=== PATIENT | male | born 1965 | race Caucasian/White ===

== ENCOUNTER 2017-12-01 20:20 | Inpatient (IN) | payer OTHER ==
[2017-12-01] MEDS ORDERED: BISACODYL (EC) 5 MG TAB PO (22:30)
[2017-12-01] MEDS ORDERED: ONDANSETRON 4 MG INJ IV (22:30)
[2017-12-01] MEDS ORDERED: NACL 0.9% 3 ML SYG IV (22:30)
[2017-12-01] MEDS ORDERED: ACETAMINOPHEN 325 MG TAB PO (22:30)
[2017-12-01] MEDS ORDERED: VANCOMYCIN IV PER PHARMACY XX (22:30)
[2017-12-01] MEDS ORDERED: DOCUSATE SODIUM 100 MG CAP PO (22:30)
[2017-12-01 23:13] LABS: ADD MAN DIFF? NO; HAAIG REFLEX REFLEX FILED
[2017-12-01 23:16] LABS: ABNORMAL IP MESSAGE 1; BASOPHIL # 0.1 10^3/ul (0.0-0.1); BASOPHILS % 1.5 % (0.0-2.0); EOSINOPHILS # 0.1 10^3/ul (0.0-0.5); EOSINOPHILS % 2.4 % (0.0-7.0); HEMATOCRIT 26.2 % (42.0-52.0); HEMOGLOBIN 8.6 g/dl (14.0-18.0); LYMPHOCYTES # 1.1 10^3/ul (0.8-2.9); LYMPHOCYTES % 24.2 % (15.0-51.0); MEAN CORPUSCULAR HEMOGLOBIN 29.6 pg (29.0-33.0); MEAN CORPUSCULAR HGB CONC 32.8 g/dl (32.0-37.0); MEAN PLATELET VOLUME 10.3 fl (7.4-10.4); MONOCYTE # 0.6 10^3/ul (0.3-0.9); MONOCYTES % 12.3 % (0.0-11.0); NEUTROPHIL # 2.7 10^3/ul (1.6-7.5); NEUTROPHILS % 59.4 % (39.0-77.0); PLATELET COUNT 83 10^3/UL (140-415); POSITIVE DIFF @See below; RED BLOOD COUNT 2.91 10^6/ul (4.70-6.10); RED CELL DISTRIBUTION WIDTH 16.5 % (11.5-14.5)
[2017-12-01 23:16] LABS: WHITE BLOOD COUNT 4.5 10^3/ul (4.8-10.8)
[2017-12-01 23:36] LABS: INR 1.25; PROTIME 15.9 Sec (11.9-14.9); PT RATIO 1.2
[2017-12-01 23:37] LABS: PARTIAL THROMBOPLASTIN TIME 35.4 Sec (25.0-35.0)
[2017-12-02 00:02] LABS: ALANINE AMINOTRANSFERASE 65 IU/L (13-69); ALBUMIN 3.5 g/dl (3.3-4.9); ALBUMIN/GLOBULIN RATIO 0.83; ALKALINE PHOSPHATASE 128 IU/L (42-121); ANION GAP 12 (8-16); ASPARTATE AMINO TRANSFERASE 143 IU/L (15-46); BLOOD UREA NITROGEN 6 mg/dl (7-20); CALCIUM 8.4 mg/dl (8.4-10.2); CARBON DIOXIDE 29 mmol/L (21-31); CHLORIDE 100 mmol/L (97-110); CREATININE 0.51 mg/dl (0.61-1.24); GLUCOSE 123 mg/dl (70-220); POTASSIUM 3.7 mmol/L (3.5-5.1); SODIUM 137 mmol/L (135-144); TOTAL PROTEIN 7.7 g/dl (6.1-8.1)
[2017-12-02 00:13] LABS: HEPATITIS B SURFACE ANTIGEN NEGATIVE (NEGATIVE)
[2017-12-02 00:33] LABS: HEPATITIS B SURFACE ANTIBODY NEGATIVE (NEGATIVE)
[2017-12-02 00:33] LABS: HEPATITIS B CORE ANTIBODY REACTIVE (NEGATIVE); HEPATITIS C VIRAL ANTIBODY REACTIVE (NEGATIVE)
[2017-12-02] MEDS: VANCOMYCIN 1.25 GM in SOD CHLORIDE 0.9% 250 ML IVPB (01:15)
[2017-12-02] MEDS: HYDROCODONE/APAP (5/325) TAB PO (03:53)
[2017-12-02] MEDS: CHLORDIAZEPOXIDE 25 MG CAP PO ×3 (05:41→20:49)
[2017-12-02] MEDS: LORAZEPAM 2 MG INJ IV (05:41)
[2017-12-02] MEDS: THIAMINE 200 MG INJ IM (06:00)
[2017-12-02 06:31] LABS: ADD MAN DIFF? NO
[2017-12-02 06:36] LABS: WHITE BLOOD COUNT 4.4 10^3/ul (4.8-10.8)
[2017-12-02 06:36] LABS: ABNORMAL IP MESSAGE 1; BASOPHIL # 0.1 10^3/ul (0.0-0.1); BASOPHILS % 1.6 % (0.0-2.0); EOSINOPHILS # 0.1 10^3/ul (0.0-0.5); EOSINOPHILS % 2.1 % (0.0-7.0); HEMATOCRIT 27.5 % (42.0-52.0); LYMPHOCYTES % 22.2 % (15.0-51.0); MEAN CORPUSCULAR HEMOGLOBIN 29.4 pg (29.0-33.0); MEAN CORPUSCULAR HGB CONC 32.7 g/dl (32.0-37.0); MEAN CORPUSCULAR VOLUME 89.9 fl (82.0-101.0); MEAN PLATELET VOLUME 11.2 fl (7.4-10.4); MONOCYTE # 0.6 10^3/ul (0.3-0.9); MONOCYTES % 14.2 % (0.0-11.0); NEUTROPHIL # 2.6 10^3/ul (1.6-7.5); NEUTROPHILS % 59.4 % (39.0-77.0); PLATELET COUNT 85 10^3/UL (140-415); POSITIVE DIFF @See below; RED BLOOD COUNT 3.06 10^6/ul (4.70-6.10); RED CELL DISTRIBUTION WIDTH 16.3 % (11.5-14.5)
[2017-12-02 06:49] LABS: HEMOGLOBIN A1C 5.1 % (0-5.9)
[2017-12-02 06:54] LABS: AMMONIA 58 umol/l (9-30)
[2017-12-02 07:08] LABS: ALANINE AMINOTRANSFERASE 66 IU/L (13-69); ALBUMIN 3.6 g/dl (3.3-4.9); ALBUMIN/GLOBULIN RATIO 0.85; ALKALINE PHOSPHATASE 112 IU/L (42-121); ANION GAP 9 (8-16); ASPARTATE AMINO TRANSFERASE 131 IU/L (15-46); BILIRUBIN,INDIRECT 1.5 mg/dl (0-1.1); BILIRUBIN,TOTAL 1.5 mg/dl (0.2-1.3); BLOOD UREA NITROGEN 7 mg/dl (7-20); CALCIUM 8.4 mg/dl (8.4-10.2); CARBON DIOXIDE 31 mmol/L (21-31); CHLORIDE 100 mmol/L (97-110); CREATININE 0.44 mg/dl (0.61-1.24); GLUCOSE 111 mg/dl (70-220); POTASSIUM 3.5 mmol/L (3.5-5.1); SODIUM 136 mmol/L (135-144); TOTAL PROTEIN 7.8 g/dl (6.1-8.1)
[2017-12-02 08:07] LABS: FOLATE 8.4 ng/ml (2.8-20.0)
[2017-12-02] MEDS ORDERED: MULTIVITAMINS 10 ML, THIAMINE 100 MG, FOLIC ACID 1 MG in SOD CHLORIDE 0.9% 1,000 ML IVPB (09:00)
[2017-12-02] MEDS: VANCOMYCIN 750 MG in SOD CHLORIDE 0.9% 150 ML IVPB (11:09)
[2017-12-02] MEDS ORDERED: METHADONE (1 MG/1 ML PO SYG) PO ×2 (14:00)
[2017-12-02] MEDS: METHADONE (1 MG/1 ML PO SYG) PO (14:10)
[2017-12-03] MEDS: THIAMINE 200 MG INJ IM (06:00)
[2017-12-03 07:53] LABS: HIV 1&2 ANTIBODY NEGATIVE (NEGATIVE)
[2017-12-03] MEDS: MULTIVITAMINS THERAPEUTIC TAB PO (08:30)
[2017-12-03] MEDS: CHLORDIAZEPOXIDE 25 MG CAP PO ×2 (08:30→12:42)
[2017-12-03] MEDS: FOLIC ACID 1 MG TAB PO (08:30)
[2017-12-03] MEDS: METHADONE (1 MG/1 ML PO SYG) PO (08:44)
[2017-12-03] MEDS ORDERED: FOLIC ACID 1 MG TAB PO (09:00)
[2017-12-04] MEDS ORDERED: CHLORDIAZEPOXIDE 25 MG CAP PO (09:00)
[2017-12-05 14:07] LABS: PROTEIN C 20 % normal (70-180)
[2017-12-08 15:17] LABS: HEPATITIS B DELTA ANTIBODY NEGATIVE
== END 2017-12-03 16:25 | disposition home or self-care (01) | DRG 556 ==
LOC: 5EC 20:20
DX: M79.605 Pain in left leg (principal); F10.230 Alcohol dependence with withdrawal, uncomplicated; F11.20 Opioid dependence, uncomplicated; M79.89 Other specified soft tissue disorders; Y90.1 Blood alcohol level of 20-39 mg/100 ml; F41.9 Anxiety disorder, unspecified; B19.20 Unspecified viral hepatitis C without hepatic coma; F17.200 Nicotine dependence, unspecified, uncomplicated; I10 Essential (primary) hypertension
CPT/HCPCS: 76705; 80053; 80307; 82140; 82607; 82746; 83036; 84443; 85025; 85300; 85302; 85305; 85610; 85613; 85730; 86692; 86703; 86704; 86706; 86708; 86709; 86803; 87340; 93970; 93971

== ENCOUNTER 2017-12-14 23:12 | Inpatient (IN) | payer OTHER ==
[2017-12-15] MEDS ORDERED: ACETAMINOPHEN 325 MG TAB PO
[2017-12-15] MEDS ORDERED: NACL 0.9% 3 ML SYG IV
[2017-12-15] MEDS ORDERED: VANCOMYCIN IV PER PHARMACY XX
[2017-12-15] MEDS ORDERED: morphine 2 MG INJ IV
[2017-12-15] MEDS ORDERED: BISACODYL (EC) 5 MG TAB PO
[2017-12-15] MEDS ORDERED: DOCUSATE SODIUM 100 MG CAP PO
[2017-12-15] MEDS ORDERED: ONDANSETRON 4 MG INJ IV
[2017-12-15 00:38] LABS: ADD MAN DIFF? NO
[2017-12-15 00:40] LABS: BASOPHIL # 0.1 10^3/ul (0.0-0.1); BASOPHILS % 2.4 % (0.0-2.0); EOSINOPHILS # 0.2 10^3/ul (0.0-0.5); EOSINOPHILS % 4.1 % (0.0-7.0); HEMATOCRIT 26.6 % (42.0-52.0); HEMOGLOBIN 8.4 g/dl (14.0-18.0); LYMPHOCYTES # 1.5 10^3/ul (0.8-2.9); LYMPHOCYTES % 31.9 % (15.0-51.0); MEAN CORPUSCULAR HEMOGLOBIN 29.4 pg (29.0-33.0); MEAN CORPUSCULAR HGB CONC 31.6 g/dl (32.0-37.0); MEAN PLATELET VOLUME 9.8 fl (7.4-10.4); MONOCYTE # 0.6 10^3/ul (0.3-0.9); MONOCYTES % 13.5 % (0.0-11.0); NEUTROPHIL # 2.2 10^3/ul (1.6-7.5); NEUTROPHILS % 47.7 % (39.0-77.0); PLATELET COUNT 263 10^3/UL (140-415); RED BLOOD COUNT 2.86 10^6/ul (4.70-6.10); RED CELL DISTRIBUTION WIDTH 16.4 % (11.5-14.5)
[2017-12-15 00:40] LABS: WHITE BLOOD COUNT 4.6 10^3/ul (4.8-10.8)
[2017-12-15 01:02] LABS: ALANINE AMINOTRANSFERASE 53 IU/L (13-69); ALBUMIN 2.8 g/dl (3.3-4.9); ALBUMIN/GLOBULIN RATIO 0.66; ALKALINE PHOSPHATASE 94 IU/L (42-121); ANION GAP 9 (8-16); ASPARTATE AMINO TRANSFERASE 89 IU/L (15-46); BILIRUBIN,INDIRECT 0.4 mg/dl (0-1.1); BILIRUBIN,TOTAL 0.4 mg/dl (0.2-1.3); BLOOD UREA NITROGEN 7 mg/dl (7-20); CALCIUM 8.1 mg/dl (8.4-10.2); CARBON DIOXIDE 29 mmol/L (21-31); CHLORIDE 107 mmol/L (97-110); CREATININE 0.49 mg/dl (0.61-1.24); GLUCOSE 90 mg/dl (70-220); POTASSIUM 3.6 mmol/L (3.5-5.1); SODIUM 141 mmol/L (135-144)
[2017-12-15] MEDS: VANCOMYCIN 1.5 GM in SOD CHLORIDE 0.9% 250 ML IVPB (02:29)
[2017-12-15] MEDS: LORAZEPAM 2 MG INJ IV (04:40)
[2017-12-15] MEDS ORDERED: CHLORDIAZEPOXIDE 25 MG CAP PO (05:00)
[2017-12-15] MEDS: CHLORDIAZEPOXIDE 25 MG CAP PO ×2 (05:41→12:00)
[2017-12-15] MEDS: HEPARIN 5,000 UNIT/0.5 ML VIAL SC ×3 (05:43→23:30)
[2017-12-15 07:42] LABS: ADD MAN DIFF? NO
[2017-12-15 07:48] LABS: WHITE BLOOD COUNT 4.4 10^3/ul (4.8-10.8)
[2017-12-15 07:48] LABS: BASOPHIL # 0.1 10^3/ul (0.0-0.1); BASOPHILS % 2.1 % (0.0-2.0); EOSINOPHILS # 0.2 10^3/ul (0.0-0.5); EOSINOPHILS % 4.1 % (0.0-7.0); HEMATOCRIT 28.7 % (42.0-52.0); HEMOGLOBIN 9.2 g/dl (14.0-18.0); LYMPHOCYTES # 1.2 10^3/ul (0.8-2.9); LYMPHOCYTES % 26.3 % (15.0-51.0); MEAN CORPUSCULAR HEMOGLOBIN 29.4 pg (29.0-33.0); MEAN CORPUSCULAR HGB CONC 32.1 g/dl (32.0-37.0); MEAN CORPUSCULAR VOLUME 91.7 fl (82.0-101.0); MEAN PLATELET VOLUME 9.7 fl (7.4-10.4); MONOCYTE # 0.6 10^3/ul (0.3-0.9); MONOCYTES % 14.2 % (0.0-11.0); NEUTROPHIL # 2.3 10^3/ul (1.6-7.5); NEUTROPHILS % 52.6 % (39.0-77.0); PLATELET COUNT 267 10^3/UL (140-415); RED BLOOD COUNT 3.13 10^6/ul (4.70-6.10); RED CELL DISTRIBUTION WIDTH 16.5 % (11.5-14.5)
[2017-12-15 08:08] LABS: IRON 33 ug/dl (35-150)
[2017-12-15 08:09] LABS: ETHANOL < 10.0 mg/dl; HEMOGLOBIN A1C 4.9 % (0-5.9)
[2017-12-15 08:12] LABS: ALANINE AMINOTRANSFERASE 58 IU/L (13-69); ALBUMIN 2.9 g/dl (3.3-4.9); ALBUMIN/GLOBULIN RATIO 0.65; ALKALINE PHOSPHATASE 101 IU/L (42-121); ANION GAP 8 (8-16); ASPARTATE AMINO TRANSFERASE 98 IU/L (15-46); BILIRUBIN,INDIRECT 0.6 mg/dl (0-1.1); BILIRUBIN,TOTAL 0.6 mg/dl (0.2-1.3); BLOOD UREA NITROGEN 8 mg/dl (7-20); CALCIUM 8.1 mg/dl (8.4-10.2); CARBON DIOXIDE 32 mmol/L (21-31); CHLORIDE 103 mmol/L (97-110); CHOL/HDL RATIO 1.6 RATIO; CHOLESTEROL 73 mg/dl (100-200); CREATININE 0.42 mg/dl (0.61-1.24); GLUCOSE 88 mg/dl (70-220); HDL CHOLESTEROL 43 mg/dl (28-71); LDL CHOLESTEROL,CALCULATED 22 mg/dl; MAGNESIUM 1.6 mg/dl (1.7-2.5); POTASSIUM 3.8 mmol/L (3.5-5.1); SODIUM 139 mmol/L (135-144); TOTAL PROTEIN 7.3 g/dl (6.1-8.1); TRIGLYCERIDES 41 mg/dl (0-149)
[2017-12-15 08:18] LABS: % IRON SATURATION 11 % SAT (22-52); TOTAL IRON BINDING CAPACITY 290 ug/dl (241-421)
[2017-12-15] MEDS: FOLIC ACID 1 MG TAB PO (08:42)
[2017-12-15] MEDS: MULTIVITAMINS THERAPEUTIC TAB PO (08:42)
[2017-12-15] MEDS: THIAMINE 200 MG INJ IM (08:42)
[2017-12-15 08:58] LABS: HEPATITIS C VIRAL ANTIBODY REACTIVE (NEGATIVE)
[2017-12-15 09:15] LABS: FOLATE 10.9 ng/ml (2.8-20.0)
[2017-12-15 11:30] LABS: FERRITIN 56.9 ng/ml (11.1-264.0)
[2017-12-15] MEDS: VANCOMYCIN 750 MG in SOD CHLORIDE 0.9% 150 ML IVPB ×2 (11:55→20:20)
[2017-12-15] MEDS ORDERED: LORAZEPAM 1 MG TAB PO (12:30)
[2017-12-15] MEDS ORDERED: VANCOMYCIN 1 GM 250 ML IVPB (13:00)
[2017-12-15 13:01] LABS: FREE T4 (FREE THYROXINE) 1.47 ng/dl (0.64-1.79)
[2017-12-15] MEDS: FERROUS SULFATE (EC) 325 MG TAB PO ×2 (13:13→20:25)
[2017-12-15] MEDS ORDERED: METHADONE (1 MG/1 ML PO SYG) PO (13:30)
[2017-12-15] MEDS: METHADONE (1 MG/1 ML PO SYG) PO (13:44)
[2017-12-15] MEDS: HYDROCODONE/APAP (5/325) TAB PO (14:40)
[2017-12-15] MEDS: LORAZEPAM 1 MG TAB PO (18:25)
[2017-12-15] MEDS ORDERED: LIDOCAINE 2%/EPI (MDV) 20ML INJ INJ (18:27)
[2017-12-15] MEDS: NICOTINE (21 MG/24 HR) PATCH TRANSDERM (20:23)
[2017-12-16 03:37] LABS: ADD MAN DIFF? NO
[2017-12-16] MEDS: LORAZEPAM 1 MG TAB PO (03:48)
[2017-12-16 03:56] LABS: ANION GAP 12 (8-16); BLOOD UREA NITROGEN 13 mg/dl (7-20); CALCIUM 8.5 mg/dl (8.4-10.2); CARBON DIOXIDE 30 mmol/L (21-31); CHLORIDE 104 mmol/L (97-110); CREATININE 0.55 mg/dl (0.61-1.24); GLUCOSE 107 mg/dl (70-220); MAGNESIUM 1.6 mg/dl (1.7-2.5); PHOSPHORUS 4.5 mg/dl (2.5-4.9); SODIUM 142 mmol/L (135-144)
[2017-12-16 04:00] LABS: BASOPHIL # 0.1 10^3/ul (0.0-0.1); BASOPHILS % 2.2 % (0.0-2.0); EOSINOPHILS # 0.2 10^3/ul (0.0-0.5); EOSINOPHILS % 4.8 % (0.0-7.0); HEMATOCRIT 30.3 % (42.0-52.0); HEMOGLOBIN 9.9 g/dl (14.0-18.0); LYMPHOCYTES # 1.8 10^3/ul (0.8-2.9); LYMPHOCYTES % 36.7 % (15.0-51.0); MEAN CORPUSCULAR HEMOGLOBIN 30.1 pg (29.0-33.0); MEAN CORPUSCULAR HGB CONC 32.7 g/dl (32.0-37.0); MEAN CORPUSCULAR VOLUME 92.1 fl (82.0-101.0); MEAN PLATELET VOLUME 10.2 fl (7.4-10.4); MONOCYTE # 0.6 10^3/ul (0.3-0.9); NEUTROPHIL # 2.2 10^3/ul (1.6-7.5); NEUTROPHILS % 44.7 % (39.0-77.0); PLATELET COUNT 290 10^3/UL (140-415); RED BLOOD COUNT 3.29 10^6/ul (4.70-6.10)
[2017-12-16] MEDS: VANCOMYCIN 1 GM 250 ML IVPB (04:34)
[2017-12-16] MEDS: HEPARIN 5,000 UNIT/0.5 ML VIAL SC (05:51)
[2017-12-16] MEDS: FERROUS SULFATE (EC) 325 MG TAB PO (09:00)
[2017-12-16] MEDS: FOLIC ACID 1 MG TAB PO (09:00)
[2017-12-16] MEDS ORDERED: CHLORDIAZEPOXIDE 25 MG CAP PO (09:00)
[2017-12-16] MEDS: MULTIVITAMINS THERAPEUTIC TAB PO (09:01)
[2017-12-16] MEDS: THIAMINE 200 MG INJ IM (09:01)
[2017-12-16] MEDS: NICOTINE (21 MG/24 HR) PATCH TRANSDERM (09:02)
[2017-12-17] MEDS ORDERED: CHLORDIAZEPOXIDE 25 MG CAP PO (09:00)
== END 2017-12-16 09:25 | disposition left against medical advice (07) | DRG 605 ==
LOC: 2NE 23:12
DX: S81.811A Laceration without foreign body, right lower leg, initial encounter (principal); L97.911 Non-pressure chronic ulcer of unspecified part of right lower leg limited to breakdown of skin; L03.115 Cellulitis of right lower limb; F11.20 Opioid dependence, uncomplicated; E83.51 Hypocalcemia; E88.09 Other disorders of plasma-protein metabolism, not elsewhere classified; F10.20 Alcohol dependence, uncomplicated; F15.10 Other stimulant abuse, uncomplicated; B18.2 Chronic viral hepatitis C; G89.29 Other chronic pain; F17.210 Nicotine dependence, cigarettes, uncomplicated; W13.8XXA Fall from, out of or through other building or structure, initial encounter; Y93.39 Activity, other involving climbing, rappelling and jumping off; Y92.89 Other specified places as the place of occurrence of the external cause; Y99.8 Other external cause status
CPT/HCPCS: 73590; 80048; 80053; 80061; 80202; 80307; 82607; 82728; 82746; 83036; 83540; 83735; 84100; 84439; 84443; 85025; 86803; 87081; 93306

== ENCOUNTER 2018-01-04 13:11 | Emergency (ER) | payer OTHER ==
[2018-01-04] MEDS: POTASSIUM CHLORIDE (SR) 20 MEQ TAB PO (17:54)
[2018-01-04 19:11] LABS: ADD MAN DIFF? NO
[2018-01-04 19:16] LABS: BASOPHIL # 0.1 10^3/ul (0.0-0.1); BASOPHILS % 1.6 % (0.0-2.0); EOSINOPHILS # 0.2 10^3/ul (0.0-0.5); EOSINOPHILS % 3.1 % (0.0-7.0); HEMATOCRIT 32.7 % (42.0-52.0); HEMOGLOBIN 10.3 g/dl (14.0-18.0); LYMPHOCYTES # 2.9 10^3/ul (0.8-2.9); LYMPHOCYTES % 45.9 % (15.0-51.0); MEAN CORPUSCULAR HEMOGLOBIN 28.6 pg (29.0-33.0); MEAN CORPUSCULAR HGB CONC 31.5 g/dl (32.0-37.0); MEAN CORPUSCULAR VOLUME 90.8 fl (82.0-101.0); MEAN PLATELET VOLUME 10.5 fl (7.4-10.4); MONOCYTE # 0.7 10^3/ul (0.3-0.9); MONOCYTES % 10.8 % (0.0-11.0); NEUTROPHIL # 2.4 10^3/ul (1.6-7.5); NEUTROPHILS % 38.3 % (39.0-77.0); PLATELET COUNT 187 10^3/UL (140-415); RED CELL DISTRIBUTION WIDTH 17.1 % (11.5-14.5)
[2018-01-04 19:16] LABS: WHITE BLOOD COUNT 6.4 10^3/ul (4.8-10.8)
== END 2018-01-04 20:11 | disposition home or self-care (01) ==
LOC: E/R 13:11
DX: L97.909 Non-pressure chronic ulcer of unspecified part of unspecified lower leg with unspecified severity (principal); F17.210 Nicotine dependence, cigarettes, uncomplicated
CPT/HCPCS: 85025; 99283

== ENCOUNTER 2018-09-21 22:59 | Emergency (ER) | payer OTHER ==
[2018-09-21 23:29] LABS: ADD MAN DIFF? NO
[2018-09-21 23:35] LABS: WHITE BLOOD COUNT 10.5 10^3/ul (4.8-10.8)
[2018-09-21 23:35] LABS: BASOPHIL # 0.1 10^3/ul (0.0-0.1); BASOPHILS % 1.2 % (0.0-2.0); EOSINOPHILS # 0.3 10^3/ul (0.0-0.5); EOSINOPHILS % 2.5 % (0.0-7.0); HEMATOCRIT 42.7 % (42.0-52.0); HEMOGLOBIN 13.9 g/dl (14.0-18.0); LYMPHOCYTES # 4.2 10^3/ul (0.8-2.9); LYMPHOCYTES % 39.4 % (15.0-51.0); MEAN CORPUSCULAR HEMOGLOBIN 29.9 pg (29.0-33.0); MEAN CORPUSCULAR HGB CONC 32.6 g/dl (32.0-37.0); MEAN CORPUSCULAR VOLUME 91.8 fl (82.0-101.0); MEAN PLATELET VOLUME 10.7 fl (7.4-10.4); MONOCYTE # 1.1 10^3/ul (0.3-0.9); MONOCYTES % 10.7 % (0.0-11.0); NEUTROPHIL # 4.8 10^3/ul (1.6-7.5); NEUTROPHILS % 45.3 % (39.0-77.0); PLATELET COUNT 264 10^3/UL (140-415); RED BLOOD COUNT 4.65 10^6/ul (4.70-6.10); RED CELL DISTRIBUTION WIDTH 14.5 % (11.5-14.5)
[2018-09-21] MEDS: LEVETIRACETAM 500 MG (PMX) 100 ML IVPB (23:44)
[2018-09-21 23:52] LABS: ALANINE AMINOTRANSFERASE 161 IU/L (13-69); ALBUMIN 4.4 g/dl (3.3-4.9); ALBUMIN/GLOBULIN RATIO 1.12; ALKALINE PHOSPHATASE 108 IU/L (42-121); ANION GAP 11 (5-13); ASPARTATE AMINO TRANSFERASE 91 IU/L (15-46); BILIRUBIN,INDIRECT 0.4 mg/dl (0-1.1); BILIRUBIN,TOTAL 0.4 mg/dl (0.2-1.3); BLOOD UREA NITROGEN 21 mg/dl (7-20); CALCIUM 9.3 mg/dl (8.4-10.2); CARBON DIOXIDE 25 mmol/L (21-31); CHLORIDE 107 mmol/L (97-110); CREATININE 0.78 mg/dl (0.61-1.24); Estimated GFR > 60 mL/min (>60); GLUCOSE 115 mg/dl (70-220); POTASSIUM 3.6 mmol/L (3.5-5.1); SODIUM 143 mmol/L (135-144); TOTAL PROTEIN 8.3 g/dl (6.1-8.1)
[2018-09-21 23:55] LABS: INR 1.05; PROTIME 13.8 Sec (11.9-14.9); PT RATIO 1.1
[2018-09-21 23:56] LABS: PARTIAL THROMBOPLASTIN TIME 27.5 Sec (23.0-35.0)
[2018-09-22 00:02] LABS: TROPONIN-I < 0.012 ng/ml (0.000-0.120)
[2018-09-22 02:00] LABS: LACTIC ACID 0.9 mmol/L (0.5-2.0)
== END 2018-09-22 04:57 | disposition home or self-care (01) ==
LOC: E/R 22:59
DX: G40.909 Epilepsy, unspecified, not intractable, without status epilepticus (principal); R06.02 Shortness of breath; Z87.891 Personal history of nicotine dependence
CPT/HCPCS: 36415; 70450; 71045; 80053; 83605; 84484; 85025; 85610; 85730; 87040-91; 93005; 96374; 99285-25